=== PATIENT | male | born 1995 | race African-American/Black ===

== ENCOUNTER 2022-05-08 18:37 | Emergency (ER) | payer MEDICAID ==
[~2022-05-08] VITALS: Ht 180.3 cm; Wt 113.4 kg
[2022-05-08] MEDS ORDERED: VENTAER INH (18:55)
[2022-05-08] MEDS ORDERED: HYDROCORTISONE 1% CREAM 30 GM TOP ONE (20:15)
[2022-05-08] MEDS ORDERED: diphenhydrAMINE 50MG CAP PO ONE (20:15)
[2022-05-08] MEDS ORDERED: HYDR1CRE30 TOP (20:17)
[2022-05-08 20:33] VITALS: BP 166/87
== END 2022-05-08 20:34 | disposition home or self-care (01) ==
LOC: M ED 18:37
DX: R22.42 Localized swelling, mass and lump, left lower limb (principal)

== ENCOUNTER 2024-04-28 05:21 | Emergency (ER) | payer MEDICAID ==
[~2024-04-28] VITALS: Ht 180.3 cm; Wt 118.4 kg
[~2024-04-28 05:21] MED LIST: HYDR1CRE30 TOP; VENTAER INH
[2024-04-28 06:07] LABS: BASO % 0.4 % (0.0-1.0); EOS # 0.2 10^3/uL (0.0-0.5); EOS % 4.7 % (0.0-3.0); HEMATOCRIT 43.3 % (42.0-52.0); HEMOGLOBIN 14.7 g/dl (13.5-17.5); LYMPH # 2.2 10^3/uL (1.5-5.0); LYMPH % 48.9 % (24.0-44.0); MEAN CORPUSCULAR HEMOGLOBIN 27.3 pg (27.0-33.0); MEAN CORPUSCULAR HGB CONC 33.9 g/dl (32.0-36.5); MEAN CORPUSCULAR VOLUME 80.5 fl (80.0-96.0); MONO # 0.4 10^3/uL (0.0-0.8); MONO % 8.7 % (2.0-8.0); NEUTROPHILS # 1.7 10^3/uL (1.5-8.5); NEUTROPHILS % 37.1 % (36.0-66.0); PLATELET COUNT, AUTOMATED 418 10^3/uL (150-450); RED BLOOD COUNT 5.38 10^6/uL (4.30-6.10); WHITE BLOOD COUNT 4.5 10^3/uL (4.0-10.0)
[2024-04-28 06:16] LABS: CK-MB VALUE MASS < 1.0 NG/ML (<3.6)
[2024-04-28 06:18] LABS: ALBUMIN 3.9 G/DL (3.2-5.2); ALKALINE PHOSPHATASE 118 U/L (46-116); ALT/SGPT 44 U/L (7.0-40); AST/SGOT 24 U/L (<34); BILIRUBIN,DIRECT < 0.1 MG/DL (<0.4); BILIRUBIN,TOTAL 0.3 MG/DL (0.3-1.2); BLOOD UREA NITROGEN 11 MG/DL (9-23); CALCIUM LEVEL 9.7 MG/DL (8.5-10.1); CARBON DIOXIDE LEVEL 28 MMOL/L (20-31); CHLORIDE LEVEL 103 MMOL/L (98-107); CPK CREATINE PHOSPHOKINASE 228 U/L (46-171); CREATININE FOR GFR 0.88 MG/DL (0.70-1.30); GLOMERULAR FILTRATION RATE > 60.0 (>60); GLUCOSE, FASTING 103 MG/DL (60-100); MB/CK RELATIVE INDEX 0.43 (< OR =4); POTASSIUM SERUM 4.1 MMOL/L (3.5-5.1); SODIUM LEVEL 136 MMOL/L (136-145); TOTAL PROTEIN 7.4 G/DL (5.7-8.2)
[2024-04-28] MEDS: IPRATROPIUM 0.5MG/ALBUTEROL 2.5MG INH SOL UD 3ML (DUONEB) NEB ONE (06:37)
[2024-04-28 08:00] LABS: CK-MB VALUE MASS < 1.0 NG/ML (<3.6)
[2024-04-28 08:01] LABS: CPK CREATINE PHOSPHOKINASE 207 U/L (46-171); MB/CK RELATIVE INDEX 0.48 (< OR =4)
[2024-04-28 08:24] VITALS: BP 143/88; TEMP 97.9; O2SAT 98
== END 2024-04-28 08:37 | disposition home or self-care (01) ==
LOC: M ED 05:21
DX: R06.02 Shortness of breath (principal); G47.33 Obstructive sleep apnea (adult) (pediatric); J45.909 Unspecified asthma, uncomplicated; R94.31 Abnormal electrocardiogram [ECG] [EKG]; F12.10 Cannabis abuse, uncomplicated; Z79.51 Long term (current) use of inhaled steroids; Z79.899 Other long term (current) drug therapy